=== PATIENT | male | born 1965 | race Caucasian/White ===

== ENCOUNTER 2018-07-12 11:27 | Emergency (ER) | payer OTHER ==
[~2018-07-12] VITALS: Ht 170.2 cm; Wt 72.6 kg
[2018-07-12] MEDS ORDERED: IBUPROFEN 600600 M1 PO (12:54)
[2018-07-12 13:18] VITALS: BP 140/91
== END 2018-07-12 13:45 | disposition home or self-care (01) ==
LOC: ER 11:27
DX: M79.671 Pain in right foot (principal)